=== PATIENT | male | born 1965 | race Two or more races ===

== ENCOUNTER 2024-08-14 23:27 | Inpatient (IN) | payer OTHER ==
[~2024-08-14] VITALS: Ht 152.4 cm; Wt 79.4 kg
[~2024-08-14 23:27] MED LIST: CLONAZEPAM 1MG TAB PO; COUMADIN5 MG PO; COUMAdin PO; NEURONTIN PO; OXYCONTIN 10 MG PO; OXYCONTIN40 MG PO; Protonix PO; XARELTO20 MG
[2024-08-14] MEDS ORDERED: LYRICA50 MG (23:42)
[2024-08-14] MEDS ORDERED: TRAMADOL HCL50 MG (23:42)
[2024-08-14] MEDS ORDERED: COZAAR100 MG (23:42)
[2024-08-14] MEDS ORDERED: DILANTIN30 MG (23:42)
[2024-08-15] MEDS ORDERED: MEPERIDINE HCL/PF 50 MG/ML VIAL IM STA ×2 (00:43→07:22)
[2024-08-15] MEDS ORDERED: 0.9 % SODIUM CHLORIDE 1,000 ML IV ONE (00:45)
[2024-08-15 02:55] LABS: MEAN CORPUSCULAR HGB CONC 29.7 g/dl (32.0-36.0); PLATELET COUNT 267 K/uL (150-450); RED BLOOD COUNT 2.83 M/uL (4.00-6.00)
[2024-08-15 02:56] LABS: HEMATOCRIT 18.4 % (39.0-48.0); MEAN CELL VOLUME 64.8 fL (80.0-100.00); MEAN CORPUSCULAR HEMOGLOBIN 19.4 pg (27.00-32.0); RED CELL DISTRIBUTION WIDTH 26.5 % (11.5-14.5)
[2024-08-15 02:59] LABS: HEMOGLOBIN 5.5 g/dL (13-16.00)
[2024-08-15 03:02] LABS: INR 1.23; PARTIAL THROMBOPLASTIN TIME 23.3 SECONDS (22.0-34.0); PROTHROMBIN TIME 13.2 SECONDS (9.0-11.5)
[2024-08-15 03:11] LABS: ALBUMIN 3.3 gm/dL (3.4-5.0); BILIRUBIN TOTAL 0.46 mg/dL (0.3-1.2); CALCIUM 8.5 mg/dL (8.5-10.1); CREATININE SERUM 0.68 mg/dL (0.70-1.30); GFR 119.35; GLOBULINA 3.3 G/DL (2.4-3.5); POTASSIUM 4.2 mEq/L (3.5-5.1); TOTAL PROTEIN 6.6 gm/dL (6.4-8.2)
[2024-08-15] MEDS ORDERED: MULTIVIT INFUSN,ADULT 4,VIT K 10 ML VIAL IV SCH (14:42)
[2024-08-15] MEDS ORDERED: Cyanocobalamin/Mecobalamin 1 TAB.SL SL SCH (14:42)
[2024-08-15] MEDS ORDERED: LOSARTAN POTASSIUM 100 MG TABLET PO SCH (14:44)
[2024-08-15] MEDS ORDERED: SODIUM CHLORIDE 0.45 % 1,000 ML IV SCH (14:45)
[2024-08-15] MEDS ORDERED: ACETAMINOPHEN 500 MG GEL..CAP PO PRN (14:45)
[2024-08-15 16:52] LABS: PH,URINE 6.5 (5.0-8.0); URINE APPEARANCE Clear; URINE BILIRRUBIN Negative (NEGATIVE); URINE BLOOD Negative; URINE COLOR Yellow; URINE GLUCOSE Negative (NEGATIVE); URINE KETONE Negative (NEGATIVE); URINE LEUKOCYTE Negative; URINE NITRATE Negative; URINE PROTEIN Negative (NEGATIVE)
[2024-08-15 16:55] LABS: URINE RBC 3.9 uL (0.0-20.8)
[2024-08-15] MEDS ORDERED: Pregabalin 50 MG CAPSULE PO SCH (17:00)
[2024-08-15] MEDS ORDERED: SOD FERRIC GLUC COMPLX/SUCROSE 62.5 MG in 0.9 % SODIUM CHLORIDE 50 ML IV SCH (17:00)
[2024-08-15 17:13] LABS: URINE BACTERIA 1.2 uL (0.0-1933); URINE WBC 0.9 uL (0.0-23.2)
[2024-08-15] MEDS ORDERED: TRAMADOL HCL 50 MG TABLET PO PRN (17:45)
[2024-08-15 18:20] VITALS: BP 148/81; O2SAT 100
[2024-08-15 20:41] VITALS: BP 119/52
[2024-08-15] MEDS ORDERED: FAMOTIDINE/PF 20 MG/2 ML VIAL IV SCH (21:00)
[2024-08-16 01:26] VITALS: BP 160/70
[2024-08-16 08:11] VITALS: BP 132/72
[2024-08-16] MEDS ORDERED: PANTOPRAZOLE SODIUM 40 MG/VIAL VIAL IV SCH (09:00)
[2024-08-16 09:07] LABS: MEAN CELL VOLUME 71.8 fL (80.0-100.00); MEAN CORPUSCULAR HEMOGLOBIN 22.1 pg (27.00-32.0); MEAN CORPUSCULAR HGB CONC 30.8 g/dl (32.0-36.0); PLATELET COUNT 250 K/uL (150-450); RED BLOOD COUNT 4.19 M/uL (4.00-6.00)
[2024-08-16 09:10] LABS: HEMOGLOBIN 9.3 g/dL (13-16.00)
[2024-08-16 09:11] LABS: RED CELL DISTRIBUTION WIDTH 27.6 % (11.5-14.5)
[2024-08-16 09:23] LABS: INR 1.05; PARTIAL THROMBOPLASTIN TIME 26.3 SECONDS (22.0-34.0); PROTHROMBIN TIME 11.4 SECONDS (9.0-11.5)
[2024-08-16 11:15] LABS: PH,URINE 6.5 (5.0-8.0); URINE APPEARANCE Clear; URINE BILIRRUBIN Negative (NEGATIVE); URINE BLOOD Negative; URINE COLOR Yellow; URINE GLUCOSE Negative (NEGATIVE); URINE KETONE Negative (NEGATIVE); URINE LEUKOCYTE Negative; URINE NITRATE Negative; URINE PROTEIN Negative (NEGATIVE)
[2024-08-16 11:16] LABS: URINE RBC 3.5 uL (0.0-20.8)
[2024-08-16 13:00] LABS: URINE BACTERIA 2.4 uL (0.0-1933); URINE EPITHELIAL CELLS 0.4 uL (0.0-38.8); URINE WBC 1.5 uL (0.0-23.2)
[2024-08-16] MEDS ORDERED: MEPERIDINE HCL 25 MG/ML AMPUL IM PRN (15:30)
[2024-08-16] MEDS ORDERED: SOD FERRIC GLUC COMPLX/SUCROSE 62.5 MG/5 ML AMPUL IV ONE (16:21)
[2024-08-16] MEDS ORDERED: PREGABALIN 100 MG CAPSULE PO SCH (17:00)
[2024-08-16 17:18] VITALS: BP 140/71; O2SAT 98
[2024-08-16 19:33] LABS: FERRITIN 72.2 NG/ML (26-388)
[2024-08-16 19:41] LABS: ALBUMIN 3.6 gm/dL (3.4-5.0); BILIRUBIN TOTAL 1.07 mg/dL (0.3-1.2); CHOL HDL RATIO 2.4 (0-5.0); CREATININE SERUM 0.72 mg/dL (0.70-1.30); GFR 111.73; GLOBULINA 3.5 G/DL (2.4-3.5); POTASSIUM 3.91 mEq/L (3.5-5.1); PROSTATIC SPECIFIC ANTIGEN 0.498 NG/ML (0.010-4.00); T4 FREE 1.01 NG/ML (0.76-1.46); TOTAL PROTEIN 7.1 gm/dL (6.4-8.2); TSH 0.698 uIU/mL (0.358-3.74)
[2024-08-17 02:03] VITALS: BP 141/74
[2024-08-17 08:39] VITALS: BP 158/90
[2024-08-17 08:41] VITALS: BP 107/64
[2024-08-17] MEDS ORDERED: LIDOCAINE HCL 1% 10ML VIAL IJ STA (12:19)
[2024-08-17] MEDS ORDERED: TRIAMCINOLONE ACETONIDE 40 MG/ML VIAL IJ STA (13:26)
[2024-08-17] MEDS ORDERED: BISACODYL 5 MG TABLET.EC PO STA (18:14)
[2024-08-17 20:22] VITALS: BP 103/59; O2SAT 97
[2024-08-17 21:03] LABS: HEMATOCRIT 32.3 % (39.0-48.0); HEMOGLOBIN 10.1 g/dL (13-16.00); MEAN CORPUSCULAR HEMOGLOBIN 22.9 pg (27.00-32.0); MEAN CORPUSCULAR HGB CONC 31.4 g/dl (32.0-36.0); PLATELET COUNT 260 K/uL (150-450); RED BLOOD COUNT 4.43 M/uL (4.00-6.00)
[2024-08-17 21:04] LABS: RED CELL DISTRIBUTION WIDTH 27.8 % (11.5-14.5)
[2024-08-18 02:20] VITALS: BP 155/78
[2024-08-18 09:33] VITALS: BP 129/71
[2024-08-18 11:12] LABS: ob NEGATIVE (NEGATIVE)
[2024-08-18 17:27] VITALS: BP 152/66; O2SAT 98
[2024-08-18] MEDS ORDERED: FAMOtidine 20 MG TABLET PO SCH (21:00)
[2024-08-18 22:37] VITALS: BP 107/52
[2024-08-19 02:08] VITALS: BP 139/75
[2024-08-19] MEDS ORDERED: PANTOPRAZOLE SODIUM 40 MG TABLET.DR PO SCH (09:00)
[2024-08-19] MEDS ORDERED: LYRICA100 MG PO (11:18)
[2024-08-19] MEDS ORDERED: LOSARTAN POTAS100 MG PO (11:18)
[2024-08-19] MEDS ORDERED: INTEGRA PLUS C1 EACH PO (11:18)
[2024-08-19] MEDS ORDERED: PANTOPRAZOLE SO40 MG PO (11:18)
[2024-08-19] MEDS ORDERED: DICLOFENAC POTA50 MG PO (11:18)
[2024-08-19 12:33] VITALS: BP 138/74
== END 2024-08-19 18:11 | disposition home or self-care (01) | DRG 812 ==
LOC: ER 23:29 → MEDJ 08-15 17:42
PROVIDERS: General Practice; Internal Medicine Hematology & Oncology; ADMIT Internal Medicine; ATTEND Internal Medicine
PROC: B54MZZZ Ultrasonography of Right Upper Extremity Veins (ICD-10-PCS; principal; 2024-08-15)
PROC: 30233N1 Transfusion of Nonautologous Red Blood Cells into Peripheral Vein, Percutaneous Approach (ICD-10-PCS; 2024-08-15)
PROC: BP48ZZZ Ultrasonography of Right Shoulder (ICD-10-PCS; 2024-08-18)
DX: D64.9 Anemia, unspecified (principal); D68.62 Lupus anticoagulant syndrome; M75.51 Bursitis of right shoulder; M79.7 Fibromyalgia; I10 Essential (primary) hypertension; F17.210 Nicotine dependence, cigarettes, uncomplicated; Z86.718 Personal history of other venous thrombosis and embolism